=== PATIENT | female | born 1970 | race Two or more races ===

== ENCOUNTER 2020-03-31 11:13 | Emergency (ER) | payer OTHER ==
[~2020-03-31] VITALS: Ht 162.6 cm; Wt 61.0 kg
--- NOTE | 2020-03-31 12:04 | PHYS DOC ---
Past Medical History Past Medical History: No Pertinent History Past Surgical History: No Surgical History Smoking Status: Never Smoker Alcohol Use: None General Adult EDM: Chief Complaint: NAUSEA/VOMITING/DIARRHA HPI: HPI: Patient is a 49 year old female with no significant medical history who presents the ED today complaining of mild to moderate intermittent generalized abdominal pain with nausea vomiting and diarrhea that began last night after having a hamburger from a [place] restaurant. Patient denies any hematemesis or melena. Denies anything specifically exacerbating or relieving her symptoms. Denies any known exposure to COVID19 people. Nuclear Monitoring Technician line was used for [place] Review of Systems: Review of Systems: Constitutional: Denies fever or chills. [] Eyes: Denies change in visual acuity. [] HENT: Denies nasal congestion or sore throat. [] Respiratory: Denies cough or shortness of breath. [] Cardiovascular: Denies chest pain or edema. [] GI: Reports abdominal pain, nausea vomiting and diarrhea : Denies dysuria. [] Musculoskeletal: Denies back pain or joint pain. [] Integument: Denies rash. [] Neurologic: Denies headache, focal weakness or sensory changes. [] Psychiatric: Denies depression or anxiety. [] Heart Score: Risk Factors: Risk Factors: DM, Current or recent (<one month) smoker, HTN, HLP, family history of CAD, obesity. Risk Scores: Score 0 - 3: 2.5% MACE over next 6 weeks - Discharge Home Score 4 - 6: 20.3% MACE over next 6 weeks - Admit for Clinical Observation Score 7 - 10: 72.7% MACE over next 6 weeks - Early Invasive Strategies Physical Exam: PE: Constitutional: Well developed, well nourished, no acute distress, non-toxic appearance. [] HENT: Normocephalic, atraumatic, bilateral external ears normal, oropharynx moist, no oral exudates, nose normal. [] Eyes: PERRLA, EOMI, conjunctiva normal, no discharge. [] Neck: Normal range of motion, no tenderness, supple, no stridor. [] Cardiovascular:Heart rate regular rhythm, no murmur [] Lungs & Thorax: Bilateral breath sounds clear to auscultation [] Abdomen: Bowel sounds normal, soft, diffuse tenderness throughout the abdomen, negative psoas sign, negative obturator sign, negative Rovsing sign, negative Singre sign, no guarding, no rebound pain or tenderness, no masses, no pulsatile masses. [] Skin: Warm, dry, no erythema, no rash. [] Back: No tenderness, no CVA tenderness. [] Extremities: No tenderness, no cyanosis, no clubbing, ROM intact, no edema. [] Neurologic: Alert and oriented X 3, normal motor function, normal sensory function, no focal deficits noted. [] Psychologic: Affect normal, judgement normal, mood normal. [] Current Patient Data: Vital Signs: Vital Signs Date Time Temp Pulse Resp B/P (MAP) Pulse Ox O2 Delivery O2 Flow Rate FiO2 03/31/20 11:45 98.4 59 18 132/59 (83) 100 Room Air 98.4 EKG: EKG: [] Radiology/Procedures: Radiology/Procedures: []PROCEDURE: CT ABDOMEN PELVIS WO CONTRAST CT abdomen pelvis without contrast dated 03/31/2020. No comparison available. CLINICAL INDICATION: Abdominal pain. TECHNIQUE: Contiguous axial imaging the M pelvis performed without the administration of IV or oral contrast. One or more of the following individualized dose reduction techniques were utilized for this examination: 1. Automated exposure control 2. Adjustment of the mA and/or kV according to patient size 3. Use of iterative reconstruction technique. FINDINGS: Limited images of lung bases are clear. Heart size within normal limits. No pleural or pericardial effusion. Solid abdominal viscera not well evaluated in the absence of contrast material. No apparent attenuation abnormality of the liver or spleen. Pancreas, adrenal glands and gallbladder are unremarkable. Kidneys are symmetric in size and attenuation. No calcific renal or ureteral stone. No hydronephrosis. Unopacified GI tract normal in caliber and contour. No focal bowel wall thickening. The appendix is partially visualized and appears to measure about 1.1 cm diameter. No inflammatory changes in the adjacent fat. There is a small amount of free fluid adjacent to the cecal tip. No adenopathy or ascites. Abdominal aorta normal in caliber. Images of pelvis show nondistended urinary bladder. Uterus and adnexa are unremarkable. No free fluid or lymphadenopathy. Bone windows show no acute findings. Mild multilevel spondylosis. IMPRESSION: 1. The appendix is mildly dilated, however there are no inflammatory changes in the periappendiceal fat. This could be a normal variant or related to chronic inflammation. Early acute appendicitis cannot be excluded. Correlate with physical exam findings. 2. Otherwise no significant abnormality. No renal stone or hydronephrosis. Electronically signed by: Whitney Ramírez MD (03/31/2020 3:31 PM) [facility] [place] DICTATED and SIGNED BY: WHITNEY RAMÍREZ MD DATE: 03/31/20 1533 Course & Med Decision Making: Course & Med Decision Making Pertinent Labs and Imaging studies reviewed. (See chart for details) This is a 49-year-old female patient presenting to the ED today with nausea vomiting and diarrhea as well as generalized abdominal pain, symptoms began last night after having a hamburger from a [place] restaurant CBC with a normal WBC, CMP with no acute findings, urine analysis negative for infection. CT of the abdomen and pelvic is noted for mildly dilated appendix with no inflammatory changes which could be a normal variant or related to chronic inflammation. Early acute appendicitis cannot be excluded. Correlate with physical exam. Results were discussed with patient. She has no point tenderness to the right lower quadrant. Talked to patient about calling general surgery and possible admission if they deem it necessary. Patient declined. She states she does not feel she has appendicitis. Patient herself prefers to go home and follow up with her own PCP who she saw yesterday. Return precautions provided. 04/02/20 1150 Called patient spoke to her through the niece. She states she is doing very well. Patient reports her symptoms are completely gone. She states she is tolerating p.o. intake well and does not have diarrhea. Encourage her to follow-up with the PCP. Elmer Disclaimer: Elmer Disclaimer: This electronic medical record was generated, in whole or in part, using a voice recognition dictation system. Departure Departure Impression: Primary Impression: Vomiting and diarrhea Additional Impressions: Generalized abdominal pain Food poisoning Disposition: HOME, SELF-CARE Condition: STABLE Referrals: NO PCP (PCP) Please follow up with your doctor in 2-4 days Patient Instructions: Diarrhea, Nausea and Vomiting, [id number] Additional Instructions: You were seen for nausea vomiting abdominal pain and diarrhea. Please push fluids. Maintain good hand hygiene. Take the prescribed medications as ordered. Come back to the ED at any point symptoms worsen otherwise follow-up with your doctor in 2 days. Scripts Ondansetron (ONDANSETRON ODT) 4 Mg Tab.rapdis 1 TAB PO PRN Q6-8HRS, #16 TAB Prov: TEODORO SCHMIDT APRN 03/31/20 Hydrocodone/Apap 5-325 (NORCO 5-325 TABLET) 1 Each Tablet 1 TAB PO Q6-8HRS PRN for PAIN, #12 TAB Prov: TEODORO SCHMIDT APRN 03/31/20 Dicyclomine Hcl (DICYCLOMINE HCL) 20 Mg Tablet 1 TAB PO TID, #30 TAB 1 Refill Prov: TEODORO SCHMIDT APRN 03/31/20 Justicifation of Admission Dx: Justifications for Admission: Justification of Admission Dx: N/A TEODORO SCHMIDT APRN Mar 31, 2020 12:04
[2020-03-31] MEDS ORDERED: IV NORMAL SALINE 1000ML BAG 1,000 ML IV ONE (12:15)
[2020-03-31] MEDS ORDERED: ONDANSETRON PF 4 MG/2 ML VIAL. IVP ONE (12:15)
[2020-03-31] MEDS ORDERED: fentaNYL PF VIAL 100 MCG/2 ML VIAL IVP ONE (12:15)
[2020-03-31] MEDS ORDERED: FAMOTIDINE 20 MG/2 ML VIAL IVP ONE (12:15)
[2020-03-31 12:17] LABS: BASO % 0 % (0-3); EOS % 0 % (0-3); HEMOGLOBIN 12.9 g/dL (12.0-15.5); LYMPH # 0.6 x10^3/uL (1.0-4.8); LYMPH % 6 % (24-48); MEAN CORPUSCULAR HEMOGLOBIN 30 pg (25-35); MEAN CORPUSCULAR HGB CONC 34 g/dL (31-37); MEAN CORPUSCULAR VOLUME 88 fL (79-100); MONO # 0.2 x10^3/uL (0.0-1.1); MONO % 2 % (0-9); NEUT # 8.9 x10^3/uL (1.8-7.7); NEUT % 91 % (31-73); PLATELET COUNT 310 x10^3/uL (140-400); RED BLOOD COUNT 4.31 x10^6/uL (3.50-5.40); RED CELL DISTRIBUTION WIDTH 13.2 % (11.5-14.5); WHITE BLOOD COUNT 9.8 x10^3/uL (4.0-11.0)
[2020-03-31 12:18] LABS: BILIRUBIN,URINE NEGATIVE (NEG); CLARITY,URINE CLOUDY; COLOR,URINE YELLOW; NITRITE,URINE NEGATIVE (NEG); PH,URINE 8.5 (<5.0-8.0); PROTEIN,URINE 30 mg/dL (NEG-TRACE); UROBILINOGEN,URINE 0.2 mg/dL (0.2 mg/dL)
[2020-03-31 12:25] LABS: BARBITURATES NEG (NEG); BENZODIAZEPINES NEG (NEG); CANNABINOIDS NEG (NEG); COCAINE NEG (NEG); METHADONE NEG (NEG); OPIATES NEG (NEG); PHENCYCLIDINE NEG (NEG)
[2020-03-31 12:26] LABS: AMPHETAMINE/METHAMPHETAMINE NEG (NEG)
[2020-03-31 12:33] LABS: SQUAMOUS EPITHELIAL CELL,UR MOD /LPF
[2020-03-31 12:34] LABS: AMORPHOUS SEDIMENT,UR PRESENT /HPF; BACTERIA,URINE FEW /HPF (0-FEW); WBC,URINE 0 /HPF (0-4)
[2020-03-31 12:48] LABS: CALCIUM 8.6 mg/dL (8.5-10.1); CREATININE 0.6 mg/dL (0.6-1.0); GFR 106.7; POTASSIUM 3.4 mmol/L (3.5-5.1)
[2020-03-31 13:04] LABS: ALBUMIN 3.7 g/dL (3.4-5.0); ALBUMIN/GLOBULIN RATIO 1.2 (1.0-1.7); MAGNESIUM 1.9 mg/dL (1.8-2.4); TOTAL BILIRUBIN 0.4 mg/dL (0.2-1.0); TOTAL PROTEIN 6.9 g/dL (6.4-8.2)
[2020-03-31 13:10] LABS: % LYMPHS 6 % (24-48); % MONOS 3 % (0-10); % SEGS 91 % (35-66); PLT ESTIMATE ADEQUATE (ADEQUATE)
[2020-03-31] MEDS ORDERED: MORPHINE SULFATE 10 MG/ML VIAL. IV ONE (14:30)
--- NOTE | 2020-03-31 15:34 | RAD ---
CT abdomen pelvis without contrast dated 03/31/2020. No comparison available. CLINICAL INDICATION: Abdominal pain. TECHNIQUE: Contiguous axial imaging the M pelvis performed without the administration of IV or oral contrast. One or more of the following individualized dose reduction techniques were utilized for this examination: 1. Automated exposure control 2. Adjustment of the mA and/or kV according to patient size 3. Use of iterative reconstruction technique. FINDINGS: Limited images of lung bases are clear. Heart size within normal limits. No pleural or pericardial effusion. Solid abdominal viscera not well evaluated in the absence of contrast material. No apparent attenuation abnormality of the liver or spleen. Pancreas, adrenal glands and gallbladder are unremarkable. Kidneys are symmetric in size and attenuation. No calcific renal or ureteral stone. No hydronephrosis. Unopacified GI tract normal in caliber and contour. No focal bowel wall thickening. The appendix is partially visualized and appears to measure about 1.1 cm diameter. No inflammatory changes in the adjacent fat. There is a small amount of free fluid adjacent to the cecal tip. No adenopathy or ascites. Abdominal aorta normal in caliber. Images of pelvis show nondistended urinary bladder. Uterus and adnexa are unremarkable. No free fluid or lymphadenopathy. Bone windows show no acute findings. Mild multilevel spondylosis. IMPRESSION: 1. The appendix is mildly dilated, however there are no inflammatory changes in the periappendiceal fat. This could be a normal variant or related to chronic inflammation. Early acute appendicitis cannot be excluded. Correlate with physical exam findings. 2. Otherwise no significant abnormality. No renal stone or hydronephrosis. Electronically signed by: Chan Ramírez MD (03/31/2020 3:31 PM) [facility]
[2020-03-31] MEDS ORDERED: ONDA4TAB12 PO (15:58)
[2020-03-31] MEDS ORDERED: HYDR-3164 PO (15:58)
[2020-03-31] MEDS ORDERED: DICY20TA3 PO (15:58)
[2020-03-31 16:15] VITALS: BP 117/62
== END 2020-03-31 16:15 | disposition home or self-care (01) ==
LOC: ER 11:13
DX: T62.8X1A Toxic effect of other specified noxious substances eaten as food, accidental (unintentional), initial encounter (principal); R10.84 Generalized abdominal pain; R11.2 Nausea with vomiting, unspecified; R19.7 Diarrhea, unspecified; M47.9 Spondylosis, unspecified; Y92.89 Other specified places as the place of occurrence of the external cause
CPT/HCPCS: 36415; 74176; 80053; 80307; 81001; 81025; 83690; 83735; 85007; 85025; 96361; 96374; 96375; 99285; G0480; J2270; J2405; J3010; J3490; J7030